=== PATIENT | male | born 1950 | race Caucasian/White ===

== ENCOUNTER 2018-09-09 13:27 | Day surgery (SDC) | payer BC ==
[2018-09-09] MEDS ORDERED: PROPOFOL 40 ML (15:29)
[2018-09-09] MEDS ORDERED: LIDOCAINE 100 MG SYRINGE (15:29)
[2018-09-09] MEDS ORDERED: ONDANSETRON 4 MG INJ IV (15:30)
[2018-09-09] MEDS ORDERED: LABETALOL HCL 20MG INJ IV (15:30)
[2018-09-09] MEDS ORDERED: ESMOLOL 10 ML (15:30)
[2018-09-09] MEDS ORDERED: METOCLOPRAMIDE 10 MG INJ IV (15:30)
[2018-09-09] MEDS ORDERED: hydrALAzine 20 MG INJ IV (15:30)
[2018-09-09] MEDS ORDERED: ETOMIDATE 20 MG INJ (16:11)
[2018-09-09] MEDS ORDERED: PHENYLephrine (100 MCG/ML) 5ML SYG (16:11)
== END 2018-09-09 17:38 | disposition home or self-care (01) ==
LOC: GIL 13:27
DX: K64.8 Other hemorrhoids (principal); D50.9 Iron deficiency anemia, unspecified; K21.0 Gastro-esophageal reflux disease with esophagitis; K29.50 Unspecified chronic gastritis without bleeding
CPT/HCPCS: 43239; 88305; 88312